=== PATIENT | female | born 1975 | race Caucasian/White ===

== ENCOUNTER 2019-01-21 13:29 | Inpatient (IN) | payer MEDICAID ==
[2019-01-21] MEDS: HYDROmorphONE 1 MG/ML SYG IV (13:54)
[2019-01-21] MEDS: ONDANSETRON 4 MG INJ IV (13:54)
[2019-01-21] MEDS: SOD CHLORIDE 0.9% 1,000 ML IV (13:54)
[2019-01-21 13:56] LABS: ADD MAN DIFF? NO
[2019-01-21 14:00] LABS: WHITE BLOOD COUNT 6.2 10^3/ul (4.8-10.8)
[2019-01-21 14:00] LABS: BASOPHILS % 0.3 % (0.0-2.0); EOSINOPHILS % 0.6 % (0.0-7.0); HEMATOCRIT 34.8 % (37.0-47.0); HEMOGLOBIN 11.3 g/dl (12.0-16.0); LYMPHOCYTES % 16.5 % (15.0-51.0); MEAN CORPUSCULAR HEMOGLOBIN 29.5 pg (29.0-33.0); MEAN CORPUSCULAR HGB CONC 32.5 g/dl (32.0-37.0); MEAN CORPUSCULAR VOLUME 90.9 fl (82.0-101.0); MEAN PLATELET VOLUME 10.7 fl (7.4-10.4); MONOCYTE # 0.6 10^3/ul (0.3-0.9); MONOCYTES % 9.4 % (0.0-11.0); NEUTROPHIL # 4.5 10^3/ul (1.6-7.5); PLATELET COUNT 227 10^3/UL (140-415); RED BLOOD COUNT 3.83 10^6/ul (4.20-5.40); RED CELL DISTRIBUTION WIDTH 13.8 % (11.5-14.5)
[2019-01-21 14:04] LABS: ADD UMIC NO; UR ASCORBIC ACID NEGATIVE (NEGATIVE); UR BILIRUBIN (Dip) NEGATIVE (NEGATIVE); UR BLOOD (Dip) NEGATIVE (NEGATIVE); UR CLARITY SLIGHTLY CLOUDY (CLEAR); UR COLOR YELLOW (YELLOW); UR GLUCOSE (Dip) NEGATIVE (NEGATIVE); UR KETONES (Dip) 1+ mg/dL (NEGATIVE); UR LEUKOCYTE ESTERASE (Dip) NEGATIVE Leu/ul (NEGATIVE); UR MUCUS MODERATE /HPF (NONE SEEN); UR NITRITE (Dip) NEGATIVE (NEGATIVE); UR RBC 1 /HPF (0-5); UR SPECIFIC GRAVITY (Dip) 1.019 (1.003-1.030); UR SQUAMOUS EPITHELIAL CELL MODERATE /HPF (FEW); UR TOTAL PROTEIN (Dip) NEGATIVE (NEGATIVE); UR UROBILINOGEN (Dip) NEGATIVE (NEGATIVE); UR WBC 1 /HPF (0-5)
[2019-01-21 14:22] LABS: ALANINE AMINOTRANSFERASE 223 IU/L (13-69); ALBUMIN 4.3 g/dl (3.3-4.9); ALBUMIN/GLOBULIN RATIO 1.26; ALKALINE PHOSPHATASE 144 IU/L (42-121); ANION GAP 10 (5-13); ASPARTATE AMINO TRANSFERASE 205 IU/L (15-46); BILIRUBIN,INDIRECT 0.7 mg/dl (0-1.1); BILIRUBIN,TOTAL 0.7 mg/dl (0.2-1.3); BLOOD UREA NITROGEN 12 mg/dl (7-20); CALCIUM 9.5 mg/dl (8.4-10.2); CARBON DIOXIDE 26 mmol/L (21-31); CHLORIDE 105 mmol/L (97-110); CREATININE 0.58 mg/dl (0.44-1.00); Estimated GFR > 60 mL/min (>60); GLUCOSE 130 mg/dl (70-220); LIPASE 76 U/L (23-300); POTASSIUM 3.8 mmol/L (3.5-5.1); SODIUM 141 mmol/L (135-144); TOTAL PROTEIN 7.7 g/dl (6.1-8.1)
[2019-01-21] MEDS: IOHEXOL 0 ML (15:59)
[2019-01-21] MEDS: IOHEXOL 100 ML (15:59)
[2019-01-21] MEDS: SOD CHLORIDE 0.9% 100 ML ×2 (15:59)
[2019-01-21] MEDS: HYDROmorphONE 2 MG/ML SYG IV (16:06)
[2019-01-21] MEDS: KETOROLAC 15 MG INJ IV ×2 (17:52→21:21)
[2019-01-21] MEDS ORDERED: DOCUSATE SODIUM 100 MG CAP PO (18:00)
[2019-01-21] MEDS ORDERED: NACL 0.9% 3 ML SYG IV (18:00)
[2019-01-21] MEDS ORDERED: MAGNESIUM HYDROXIDE 30ML CUP PO (18:00)
[2019-01-21] MEDS ORDERED: ONDANSETRON 4 MG INJ IV (18:30)
[2019-01-21] MEDS ORDERED: ACETAMINOPHEN 325 MG TAB PO (18:30)
[2019-01-21] MEDS: PIPER-TAZO 3.375 GM IV (PMX) 100 ML IVPB (18:48)
[2019-01-21] MEDS: DEXTROSE 5%-0.45% NACL 1,000 ML IV (20:50)
[2019-01-21] MEDS: FAMOTIDINE 20 MG INJ IV (20:50)
[2019-01-21] MEDS: ACETAMINOPHEN 325 MG TAB PO (21:19)
[2019-01-21] MEDS: morphine 2 MG INJ IV (23:55)
[2019-01-22] MEDS: ONDANSETRON 4 MG INJ IV ×3 (00:17→20:11)
[2019-01-22] MEDS: PIPER-TAZO 3.375 GM IV (PMX) 100 ML IVPB ×4 (02:05→20:11)
[2019-01-22] MEDS: KETOROLAC 30 MG INJ IV ×4 (02:05→21:03)
[2019-01-22] MEDS: DEXTROSE 5%-0.45% NACL 1,000 ML IV ×3 (03:55→23:55)
[2019-01-22 05:26] LABS: ADD MAN DIFF? NO
[2019-01-22 05:28] LABS: BASOPHILS % 0.4 % (0.0-2.0); HEMATOCRIT 33.5 % (37.0-47.0); HEMOGLOBIN 10.7 g/dl (12.0-16.0); LYMPHOCYTES # 0.6 10^3/ul (0.8-2.9); LYMPHOCYTES % 6.8 % (15.0-51.0); MEAN CORPUSCULAR HEMOGLOBIN 29.6 pg (29.0-33.0); MEAN CORPUSCULAR HGB CONC 31.9 g/dl (32.0-37.0); MEAN CORPUSCULAR VOLUME 92.8 fl (82.0-101.0); MEAN PLATELET VOLUME 11.6 fl (7.4-10.4); MONOCYTE # 0.8 10^3/ul (0.3-0.9); MONOCYTES % 8.7 % (0.0-11.0); NEUTROPHIL # 7.9 10^3/ul (1.6-7.5); NEUTROPHILS % 83.7 % (39.0-77.0); PLATELET COUNT 193 10^3/UL (140-415); RED BLOOD COUNT 3.61 10^6/ul (4.20-5.40); RED CELL DISTRIBUTION WIDTH 13.9 % (11.5-14.5)
[2019-01-22 05:28] LABS: WHITE BLOOD COUNT 9.4 10^3/ul (4.8-10.8)
[2019-01-22] MEDS: morphine 2 MG INJ IV ×2 (05:40→07:41)
[2019-01-22 06:10] LABS: ALANINE AMINOTRANSFERASE 140 IU/L (13-69); ALBUMIN 3.8 g/dl (3.3-4.9); ALBUMIN/GLOBULIN RATIO 1.22; ALKALINE PHOSPHATASE 115 IU/L (42-121); ANION GAP 7 (5-13); ASPARTATE AMINO TRANSFERASE 69 IU/L (15-46); BILIRUBIN,INDIRECT 1.1 mg/dl (0-1.1); BILIRUBIN,TOTAL 1.1 mg/dl (0.2-1.3); BLOOD UREA NITROGEN 9 mg/dl (7-20); CALCIUM 8.8 mg/dl (8.4-10.2); CARBON DIOXIDE 26 mmol/L (21-31); CHLORIDE 106 mmol/L (97-110); Estimated GFR > 60 mL/min (>60); GLUCOSE 136 mg/dl (70-220); MAGNESIUM 1.9 mg/dl (1.7-2.5); POTASSIUM 3.7 mmol/L (3.5-5.1); SODIUM 139 mmol/L (135-144); TOTAL PROTEIN 6.9 g/dl (6.1-8.1)
[2019-01-22] MEDS: FAMOTIDINE 20 MG INJ IV ×2 (07:42→20:11)
[2019-01-22] MEDS: LORAZEPAM 2 MG INJ IV ×2 (08:15→15:36)
[2019-01-22] MEDS ORDERED: PIPER-TAZO 3.375 GM IV (PMX) 100 ML IVPB ×2 (12:00→18:00)
[2019-01-22] MEDS: morphine 4 MG/ML VIAL IV (13:21)
[2019-01-22] MEDS: BUPIVACAINE 0.25%/EPI (SDV) 30 ML INJ (16:46)
[2019-01-22] MEDS: LIDOCAINE 1% (MPF) 30 ML INJ (16:47)
[2019-01-22] MEDS ORDERED: FENTAnyl 50 MCG/ML VIAL ×2 (17:26→18:05)
[2019-01-22] MEDS ORDERED: PROPOFOL 20 ML (17:26)
[2019-01-22] MEDS ORDERED: GLYCOPYRROLATE 0.4 MG INJ (17:26)
[2019-01-22] MEDS ORDERED: DEXAMETHASONE 4 MG/ML 5 ML INJ (17:26)
[2019-01-22] MEDS ORDERED: MIDAZOLAM 1 MG/ML 2 ML INJ (17:26)
[2019-01-22] MEDS ORDERED: ROCURONIUM 50 MG INJ (17:26)
[2019-01-22] MEDS ORDERED: ONDANSETRON 4 MG INJ (17:26)
[2019-01-22] MEDS ORDERED: CEFAZOLIN 1 GM INJ (17:26)
[2019-01-22] MEDS ORDERED: NEOSTIGMINE 3 MG/3 ML SYRINGE (17:26)
[2019-01-22] MEDS ORDERED: LABETALOL HCL 20MG INJ IV (17:30)
[2019-01-22] MEDS ORDERED: ONDANSETRON 4 MG INJ IV ×2 (17:30)
[2019-01-22] MEDS ORDERED: IPRATROPIUM (NEB) 0.5 MG/2.5 ML AMP HHN (17:30)
[2019-01-22] MEDS ORDERED: HYDROmorphONE 1 MG/5 ML IV SYRINGE IV ×2 (17:30)
[2019-01-22] MEDS ORDERED: morphine 4 MG/ML VIAL IV (17:30)
[2019-01-22] MEDS ORDERED: ALBUTEROL 0.083% (NEB) 2.5 MG/3 ML AMP HHN (17:30)
[2019-01-22] MEDS ORDERED: TRIMETHOBENZAMIDE 100 MG/ML VIAL IM (17:30)
[2019-01-22] MEDS ORDERED: EPHEDrine 25 MG/5 ML SYG IV (17:30)
[2019-01-22] MEDS ORDERED: OXYCODONE/ACETAMINOPHEN (5/325) TAB PO ×2 (17:30)
[2019-01-22] MEDS ORDERED: MEPERIDINE 25 MG INJ IV (17:30)
[2019-01-22] MEDS ORDERED: DIPHENHYDRAMINE 50 MG INJ IV (17:30)
[2019-01-22] MEDS ORDERED: MIDAZOLAM 1 MG/ML 2 ML INJ IV (17:30)
[2019-01-22] MEDS ORDERED: hydrALAzine 20 MG INJ IV (17:30)
[2019-01-22] MEDS ORDERED: FENTAnyl 50 MCG/ML VIAL IV ×3 (17:30)
[2019-01-22] MEDS ORDERED: ACETAMINOPHEN 325 MG TAB PO (17:30)
[2019-01-22] MEDS: HYDROmorphONE 1 MG/5 ML IV SYRINGE IV (19:19)
[2019-01-22] MEDS: D5-NS + KCL 20 MEQ 1,000 ML IV (20:11)
[2019-01-22] MEDS: SOD CHLORIDE 0.9% 500 ML IV (23:31)
[2019-01-23] MEDS: SOD CHLORIDE 0.9% 500 ML IV (02:17)
[2019-01-23] MEDS: D5-NS + KCL 20 MEQ 1,000 ML IV ×3 (03:16→20:26)
[2019-01-23] MEDS: PIPER-TAZO 3.375 GM IV (PMX) 100 ML IVPB ×4 (03:25→20:40)
[2019-01-23 04:51] LABS: ABNORMAL IP MESSAGE 1; HEMATOCRIT 29.2 % (37.0-47.0); HEMOGLOBIN 9.1 g/dl (12.0-16.0); MEAN CORPUSCULAR HEMOGLOBIN 29.4 pg (29.0-33.0); MEAN CORPUSCULAR HGB CONC 31.2 g/dl (32.0-37.0); MEAN CORPUSCULAR VOLUME 94.2 fl (82.0-101.0); MEAN PLATELET VOLUME 11.3 fl (7.4-10.4); PLATELET COUNT 171 10^3/UL (140-415); RED CELL DISTRIBUTION WIDTH 14.3 % (11.5-14.5)
[2019-01-23 04:51] LABS: WHITE BLOOD COUNT 12.8 10^3/ul (4.8-10.8)
[2019-01-23 04:58] LABS: ADD MAN DIFF? YES; POSITIVE DIFF @See below
[2019-01-23 05:08] LABS: ALANINE AMINOTRANSFERASE 117 IU/L (13-69); ALKALINE PHOSPHATASE 109 IU/L (42-121); ANION GAP 6 (5-13); ASPARTATE AMINO TRANSFERASE 71 IU/L (15-46); BILIRUBIN,INDIRECT 0.8 mg/dl (0-1.1); BILIRUBIN,TOTAL 0.8 mg/dl (0.2-1.3); BLOOD UREA NITROGEN 6 mg/dl (7-20); CALCIUM 8.3 mg/dl (8.4-10.2); CARBON DIOXIDE 24 mmol/L (21-31); CHLORIDE 108 mmol/L (97-110); CREATININE 0.57 mg/dl (0.44-1.00); Estimated GFR > 60 mL/min (>60); GLUCOSE 158 mg/dl (70-220); POTASSIUM 3.6 mmol/L (3.5-5.1); SODIUM 138 mmol/L (135-144)
[2019-01-23 05:13] LABS: MAGNESIUM 1.7 mg/dl (1.7-2.5)
[2019-01-23] MEDS: KETOROLAC 30 MG INJ IV (06:02)
[2019-01-23] MEDS: HYDROCODONE/APAP (5/325) TAB PO ×3 (06:55→21:25)
[2019-01-23 07:42] LABS: ANISOCYTOSIS 1+ (0-0); BAND NEUTROPHILS #M 3.2 10^3/ul (0.0-0.6); BAND NEUTROPHILS % (M) 25 % (0-4); BURR CELLS 1+ (0-0); GIANT THROMBO% (M) 2 % (0-0); LYMPHOCYTES #M 0.1 10^3/ul (0.8-2.9); LYMPHOCYTES % (M) 1 % (15-51); MONOCYTE #M 0.2 10^3/ul (0.3-0.9); MONOCYTES % (M) 2 % (0-11); PLATELET ESTIMATE NORMAL; POIKILOCYTOSIS 1+ (0-0); POLYCHROMASIA 1+ (0-0); SEG NEUT #M 9.6 10^3/ul (1.6-7.5); SEGMENTED NEUTROPHILS (M) % 72 % (39-77); SMUDGE%M 2 % (0-0)
[2019-01-23] MEDS: FAMOTIDINE 20 MG INJ IV (09:41)
[2019-01-23] MEDS: IBUPROFEN 600 MG TAB PO (09:44)
[2019-01-23] MEDS: ENOXAPARIN 40 MG/0.4 ML SYG SC (09:45)
[2019-01-23] MEDS: DEXTROSE 5%-0.45% NACL 1,000 ML IV (09:55)
[2019-01-23] MEDS: FAMOTIDINE 20 MG TAB PO (20:40)
[2019-01-24] MEDS: PIPER-TAZO 3.375 GM IV (PMX) 100 ML IVPB ×2 (02:56→09:08)
[2019-01-24 05:07] LABS: ADD MAN DIFF? NO
[2019-01-24 05:11] LABS: BASOPHILS % 0.2 % (0.0-2.0); EOSINOPHILS % 0.1 % (0.0-7.0); HEMATOCRIT 26.5 % (37.0-47.0); HEMOGLOBIN 8.2 g/dl (12.0-16.0); LYMPHOCYTES # 1.3 10^3/ul (0.8-2.9); LYMPHOCYTES % 14.4 % (15.0-51.0); MEAN CORPUSCULAR HEMOGLOBIN 29.4 pg (29.0-33.0); MEAN CORPUSCULAR HGB CONC 30.9 g/dl (32.0-37.0); MEAN PLATELET VOLUME 11.4 fl (7.4-10.4); MONOCYTE # 0.6 10^3/ul (0.3-0.9); MONOCYTES % 6.8 % (0.0-11.0); NEUTROPHIL # 6.8 10^3/ul (1.6-7.5); NEUTROPHILS % 77.9 % (39.0-77.0); PLATELET COUNT 173 10^3/UL (140-415); RED BLOOD COUNT 2.79 10^6/ul (4.20-5.40); RED CELL DISTRIBUTION WIDTH 14.3 % (11.5-14.5)
[2019-01-24 05:11] LABS: WHITE BLOOD COUNT 8.8 10^3/ul (4.8-10.8)
[2019-01-24 05:28] LABS: ANION GAP 5 (5-13); BLOOD UREA NITROGEN 10 mg/dl (7-20); CALCIUM 8.1 mg/dl (8.4-10.2); CARBON DIOXIDE 24 mmol/L (21-31); CHLORIDE 110 mmol/L (97-110); CREATININE 0.59 mg/dl (0.44-1.00); Estimated GFR > 60 mL/min (>60); GLUCOSE 123 mg/dl (70-220); MAGNESIUM 2.1 mg/dl (1.7-2.5); PHOSPHORUS 2.7 mg/dl (2.5-4.9); POTASSIUM 3.5 mmol/L (3.5-5.1); SODIUM 139 mmol/L (135-144)
[2019-01-24] MEDS: HYDROCODONE/APAP (5/325) TAB PO ×2 (07:05→14:04)
[2019-01-24] MEDS: D5-NS + KCL 20 MEQ 1,000 ML IV (07:07)
[2019-01-24] MEDS: FAMOTIDINE 20 MG TAB PO (08:58)
[2019-01-24] MEDS: ENOXAPARIN 40 MG/0.4 ML SYG SC (09:03)
[2019-01-24] MEDS ORDERED: LORAZEPAM 1 MG TAB PO (13:00)
[2019-01-24 13:03] LABS: HEMATOCRIT 27.5 % (37.0-47.0); HEMOGLOBIN 8.7 g/dl (12.0-16.0)
[2019-01-24 13:21] LABS: ALANINE AMINOTRANSFERASE 86 IU/L (13-69); ALBUMIN 3.2 g/dl (3.3-4.9); ALKALINE PHOSPHATASE 100 IU/L (42-121); ASPARTATE AMINO TRANSFERASE 32 IU/L (15-46); BILIRUBIN,INDIRECT 0.4 mg/dl (0-1.1); BILIRUBIN,TOTAL 0.4 mg/dl (0.2-1.3); TOTAL PROTEIN 6.3 g/dl (6.1-8.1)
[2019-01-24] MEDS: NEOMYC/POLYMYX/BACIT 30 GM OINT TOP (15:14)
== END 2019-01-24 16:22 | disposition home or self-care (01) | DRG 419 ==
LOC: E/R 13:29 → MS1 18:28
PROC: 0FT44ZZ Resection of Gallbladder, Percutaneous Endoscopic Approach (ICD-10-PCS; principal; 2019-01-22 15:00)
DX: K81.0 Acute cholecystitis (principal); D25.9 Leiomyoma of uterus, unspecified; D64.9 Anemia, unspecified; D72.829 Elevated white blood cell count, unspecified
CPT/HCPCS: 36415; 72196; 74177; 74181; 76705; 76856; 78226; 80048; 80053; 80076; 81001; 81003; 81025; 83690; 83735; 84100; 85014; 85018; 85025; 88304; 96374; 96375; 96376; 97116; 97161; 97167; 97530; 99285-25